=== PATIENT | male | born 1965 | race Caucasian/White ===

== ENCOUNTER 2016-10-24 12:34 | Emergency (ER) | payer MEDICARE ==
[2016-10-24] MEDS ORDERED: ORPHENADRINE CITRATE 30 MG/ML VIAL IV ONE (13:11)
[2016-10-24] MEDS ORDERED: oxyCODONE HCL/ACETAMINOPHEN 1 TAB TABLET PO ONE (13:11)
[2016-10-24] MEDS ORDERED: FAMOTIDINE 10 MG/ML VIAL IV ONE ×2 (13:11→13:21)
[2016-10-24] MEDS ORDERED: KETOROLAC TROMETHAMINE 30 MG/ML VIAL IV ONE (13:12)
--- OUTSIDE RECORDS SUMMARY | 2016-10-24 13:18 | XMS REPORT | Continuity of Care Document ---
:1965 Author Organization [employer] [place] [address] Care Team Providers Name Role Phone Phill Nation Clover Primary Care Provider [phone] Source Comments This disclosure is being made pursuant to the [employer] book program and maynot contain all information available regarding this patient.[facility] Active Allergies and Adverse Reactions Not on File Current Medications Be aware that medications may not be up to date as of this document. Alwaysverify current medications with the patient. Not on file Active Problems Not on file Most Recent Encounters Date Type Specialty Providers Description 10/02/2016 Data Import Social History Tobacco Use Types Packs/Day Years Used Date Never Assessed Plan of Care Health Maintenance Due Date Last Done Comments Tetanus/Pertussis (1 - Tdap) 11/18/1982 Colonoscopy 11/18/2013 Well Adult Visit 11/18/2013 Influenza Immunization (#1) 2016 Results from Last 3 Months Not on file
--- OUTSIDE RECORDS SUMMARY | 2016-10-24 13:18 | XMS REPORT | Continuity of Care Document ---
:1965 Author Organization [facility] ([facility]) Address [address] [place] [address] Phone [phone] Care Team Providers Name Role Phone Unavailable Primary Care Provider Unavailable Source Comments This disclosure is being made pursuant to the Care Everywhere program, applicable federal and state laws, and may not contain all informaitonavailable regarding this patient.[facility] ([facility]) Active Allergies and Adverse Reactions Not on File Current Medications Not on file Active Problems Not on file Social History Tobacco Use Types Packs/Day Years Used Date Never Assessed Plan of Care Health Maintenance Due Date Last Done Comments HCV Screening 1965 Hepatitis B Vaccine (1 of 3 - Primary Series) 1965 Tdap Vaccine 11/18/1974 Lipid Disorder Screening 11/18/1981 MMR Vaccine 11/18/1981 Td Vaccine 11/18/1981 Colonoscopy 11/18/2013 Prostate Cancer Screening 11/18/2013 Influenza Vaccine: Seasonal (#1) 02/04/2016 Results from Last 3 Months Not on file
[2016-10-24] MEDS ORDERED: oxyCODONE HCL/ACETAMINOPHEN 1 TAB TABLET ONE (13:20)
[2016-10-24] MEDS ORDERED: KETOROLAC TROMETHAMINE 30 MG/ML VIAL ONE (13:20)
[2016-10-24] MEDS ORDERED: ORPHENADRINE CITRATE 30 MG/ML VIAL ONE (13:20)
[2016-10-24] MEDS ORDERED: NORMAL SALINE 1,000 ML IV ONE (13:28)
[2016-10-24 13:39] LABS: Anion Gap 11.6 mmol/L (6.8-13.8); BUN/Creatinine Ratio 6.9 (9.0-21.6); Carbon Dioxide 31.2 mmol/L (24-32.6); Estimated Creat Clear 91.1; Potassium 3.8 mmol/L (3.4-4.6)
[2016-10-24 13:40] LABS: Hematocrit 41.8 % (42.0-52.0); Hemoglobin 14.5 gm/dL (13.5-18.0); Mean Cell Volume 90.5 fl (78-100); Mean Corpuscular Hemoglobin 31.4 pg (27-31); Mean Corpuscular Hgb Conc 34.7 g/dl (32-36); Mean Platelet Volume 8.8 fl (6.0-9.5); Platelet Count 155 K/mm3 (150-450); Red Blood Count 4.62 M/mm3 (4.7-6.0); Red Cell Distribution Width 12.4 % (11.5-14.0)
--- NOTE | 2016-10-24 13:41 | ERNOTE ---
Headache ER HPI - Narrative Date of Service: 10/24/16 - General Presenting Symptoms: headache Time Seen by Provider: 10/24/16 13:00 Source: patient Exam Limitations: no limitations - Immun/Allergies/Home Medications Immunizations: IMMUNIZATION HX History of Influenza Vaccine No Allergies/Adverse Reactions: Allergies No Known Allergies Allergy (Unverified 10/24/16 12:45) Home Medications: HOME MEDICATIONS Enbrel 05/02/16 [Last Taken Unknown] Ms Contin 05/02/16 [Last Taken Unknown] Percocet 10-325 mg Tablet 05/02/16 [Last Taken Unknown] Prednisolone 05/02/16 [Last Taken Unknown] Soma 05/02/16 [Last Taken Unknown] Trazodone HCl 05/02/16 [Last Taken Unknown] Naproxen 500 mg PO BID #20 tablet. 10/24/16 [Last Taken Unknown] Orphenadrine Citrate [Norflex] 100 mg PO Q12H #14 tablet.sa 10/24/16 [Last Taken Unknown] - Pain Pain Score: 9 - History of Present Illness Narrative: Patient comes due to a headache that is located on the base of the skull and radiates to the frontal area. The pain is pulling like. Patient with no Hx of Tx and with no LOC. Patient reported that last headache was 2 yrs ago. Patient with no fever reported at the moment. Activity at onset: exertion Timing of Headache: abrupt, constant Context Headache: Absent: CO exposure, tick bite, insect bite, sick contact, meningitis exposure, recent head injury < 24 hrs ago Quality: Present: pressure, sharp, throbbing Severity Maximum: Present: severe Severity-Currently: Present: severe Headache frequency: Present: occasional headaches Modifying Factors - (Improves): Reports: other - nothing Modifying Factors - (Worsens): Reports: other - nothin Associated Symptoms: Denies: denies symptoms, fever/chills, nausea, vomiting, nasal congestion, vision changes, light-headedness, dizziness, loss of consciousness, seizures, neck pain/stiffness, speech problems Exacerbated by:: Reports: light Prior Treament: Reports: recently seen Review of Systems - Review of Systems Constitutional: Absent: fever, chills, diaphoresis, malaise EYE: Absent: double vision, vision changes ENT: Present: no symptoms reported Respiratory: Present: no symptoms reported Cardiology: Present: no symptoms reported Gastrointestinal/Abdominal: Present: no symptoms reported Genitourinary: Present: no symptoms reported Musculoskeletal: Present: no symptoms reported Skin: Present: no symptoms reported Neurological: Present: headache. Absent: anxiety, depressed, weakness, tremors Endocrine: Present: no symptoms reported Hematologic/Lymphatic: Present: no symptoms reported Psych: Present: no symptoms reported All Other Systems: All systems neg except as marked - Patient's Past Medical History Patient History - Medical: Arthritis, Liver Disease Patient History - Surgical Procedures: Total Knee Replacement, Other - Social History Living Situations: home Smoking Status: Never smoker Drug Use: none - Immunizations History of Influenza Vaccine: No Physical Exam - Physical Exam General Appearance: Present: wd/wn, alert, no apparent distress Eye Exam: Normal inspection: bilateral, PERRL: bilateral, EOMI: bilateral Ears, Nose, Throat: Present: normal ENT inspection, normal pharynx Neck: Present: normal inspection, full range of motion, other - Patient has pain on the scalene muscle complex.. Absent: carotid bruit Respiratory: Present: no respiratory distress, normal breath sounds, no accessory muscle use, chest nontender, lungs clear Cardiovascular/Chest: Present: regular rate, rhythm, no murmur, normal peripheral pulses. Absent: JVD Gastrointestinal/Abdominal: Present: normal bowel sounds, nontender, nondistended, no organomegaly Back Exam: Present: normal inspection, normal range of motion, no CVA tenderness , no vertebral tenderness Extremity Exam: Present: normal inspection, non-tender, normal range of motion, no edema Neurological Exam: Present: alert, oriented, normal mood/affect, no motor/ sensory deficits, other - GCS: 15/15, NIH Stroke Scale: 0 Skin Exam: Present: normal color, warm/dry Lymphatic Exam: Present: no adenopathy ED Progress - Date and Time Seen: Date and Time: 10/24/16 14:49 GCS: 15/15, NIH Stroke Scale: 0, Patient has improve. Patient has been told CT reports. Patient at the moment has no distress and a FMS. Patient with no gross neurologic deficits. Patient will be discharge home and is to follow with his PCP. - Results and Orders Patient's Lab Results:: I have reviewed the patient's lab results. Results and Orders: CBC: WNL Sed Rate: < 50 BMP: Normal - Vital Signs Patient's Vital Signs:: I have reviewed the patient's vital signs. Vital Signs: Vital Signs 10/24/16 12:39 Temperature 38.3 C H Pulse Rate 124 H Respiratory 18 Rate Blood Pressure 112/76 O2 Sat by Pulse 98 Oximetry - CT/Ultrasound CT/Ultrasound Narrative: CT Head: No acute processes reported by Radiologist. CT C-Spine: Changes noticed, no Fx reported by Radiologist. 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 Orphenadrine Citrate [Norflex] 100 mg PO Q12H #14 tablet.sa
[2016-10-24 14:17] LABS: Atypical (Reactive) Lymph 1 % (0-2); Band 11 % (0-2.0); Eosinophil 1 % (0-3); Lymphocyte 9 % (20-51); Monocyte 2 % (0-9); Neutrophil 76 % (42-75); Neutrophil # 4.3 K/mm3 (1.3-6.0); Platelet Estimate Normal (NORMAL); RBC Morphology Normal (NORMAL); Total Cells Counted 82
[2016-10-24 15:25] VITALS: BP 114/74
== END 2016-10-24 15:00 | disposition home or self-care (01) ==
LOC: ER 12:34
DX: G44.209 Tension-type headache, unspecified, not intractable (principal)